=== PATIENT | male | born 1965 | race African-American/Black ===

== ENCOUNTER 2025-02-24 20:17 | Emergency (ER) | payer MEDICAID ==
[~2025-02-24] VITALS: Ht 182.9 cm; Wt 60.0 kg
[2025-02-24 20:19] VITALS: TEMP 36.7; O2SAT 98
[2025-02-24 21:51] LABS: BASOPHILS % 0.8 % (0.0-2.0); EOSINOPHILS % 5.3 % (0.0-5.0); HEMATOCRIT. 41.7 % (42.0-52.0); HEMOGLOBIN. 13.7 g/dL (14.0-18.0); LYMPHOCYTES % 26.9 % (20.0-50.0); MEAN PLATELET VOLUME 8.2 fl (7.4-10.4); MONOCYTES % 8.2 % (2.0-8.0); NEUTROPHILS % 58.8 % (40.0-76.0); PLATELET 267 x1000/uL (130-400); RED BLOOD CELL COUNT 4.98 mill/uL (4.7-6.1); RED CELL DISTRIBUTION WIDTH 14.8 % (11.6-14.6)
[2025-02-24 22:05] LABS: CREATININE 1.0 mg/dL (0.6-1.3); UREA NITROGEN BLOOD 14 mg/dL (9-23)
[2025-02-24 22:06] LABS: TROPONIN I HIGH SENSITIVITY 14 ng/L (3.0-53)
[2025-02-25 00:32] LABS: TROPONIN I HIGH SENSITIVITY 11 ng/L (3.0-53)
[2025-02-25] MEDS: IOHEXOL-350 100 ML BOTTLE ONE (03:25)
[2025-02-25 03:57] VITALS: BP 140/92; PULSE 70; RESP 18; O2SAT 99
== END 2025-02-25 04:04 ==
LOC: ER 20:17
DX: R07.89 Other chest pain (principal); R51.9 Headache, unspecified; F12.90 Cannabis use, unspecified, uncomplicated; I10 Essential (primary) hypertension; F31.9 Bipolar disorder, unspecified
CPT/HCPCS: 80048; 83880; 85025; 85379; 84484; 36415; 71045; 71275; 99285; Z7610; Q9967; A4606